=== PATIENT | female | born 1995 | race Caucasian/White ===

== ENCOUNTER 2018-01-01 23:15 | Emergency (ER) | payer MEDICAID ==
[~2018-01-01] VITALS: Ht 177.8 cm; Wt 128.9 kg
[~2018-01-01 23:15] MED LIST: CLIN300C8 PO; FAMO20TA7 PO; FLUO20CA19 PO; LORA1TAB PO; METH500T97 PO; METO25TA35 PO; OXYC-302 PO; OXYM30SP NAS; RANI150C PO; SUCR1TAB PO
[2018-01-01 23:17] VITALS: BP 161/90
== END 2018-01-01 23:41 | disposition home or self-care (01) ==
LOC: ED 23:35
DX: M26.622 Arthralgia of left temporomandibular joint (principal); R68.84 Jaw pain; I10 Essential (primary) hypertension
CPT/HCPCS: 99283

== ENCOUNTER 2018-09-08 22:30 | Emergency (ER) | payer MEDICAID ==
[~2018-09-08] VITALS: Ht 177.8 cm; Wt 128.7 kg
[2018-09-08 23:25] LABS: HCG UR SG 1.018 (1.003-1.030)
[2018-09-09 00:25] VITALS: BP 135/63
[2018-09-09 00:35] LABS: CULTURE INDICATED? YES; MICROSCOPIC INDICATED
== END 2018-09-09 01:13 | disposition home or self-care (01) ==
LOC: ED 23:00
DX: N30.00 Acute cystitis without hematuria (principal); I10 Essential (primary) hypertension; R05 Cough
CPT/HCPCS: 71045; 81001; 81025; 87077; 87086; 87186; 99284

== ENCOUNTER 2020-07-22 17:52 | Emergency (ER) | payer MEDICAID, OTHER ==
[~2020-07-22] VITALS: Ht 175.3 cm; Wt 126.8 kg
[~2020-07-22 17:52] MED LIST changes: -OXYM30SP NAS; +OXYM30SP27 NAS
[2020-07-22] MEDS ORDERED: MORPHINE SULFATE 4 MG/ML, 1ML ONE ×2 (18:20→20:01)
[2020-07-22] MEDS ORDERED: SODIUM CHLORIDE FLUSH 10ML SYR IVF ONE (18:30)
[2020-07-22] MEDS: MORPHINE SULFATE 4 MG/ML, 1ML IVPush PRN ×2 (18:35→20:04)
[2020-07-22 18:48] LABS: BASOPHILS % (AUTO) 2 % (0-1); EOSINOPHILS % (AUTO) 5 % (1-7); LYMPHOCYTES % (AUTO) 31 % (22-44); MEAN CORPUSCULAR HEMOGLOBIN 30.1 pg (27.0-34.8); MONOCYTES % (AUTO) 6 % (2-9); NEUTROPHILS % (AUTO) 56 % (42-75); PLATELET COUNT 275 x10^3/uL (130-400); RED BLOOD COUNT 4.53 x10^6/uL (3.82-5.3); RED CELL DISTRIBUTION WIDTH 12.9 % (9.6-15.2)
--- NOTE | 2020-07-22 18:52 | NUR ---
REPORT GIVEN TO PILI HARDWICK
[2020-07-22 18:57] LABS: MD NO
[2020-07-22 18:59] LABS: ALBUMIN 3.8 g/dL (3.4-5.0); ANION GAP 5 mmol/L (5-15); CALCIUM 8.6 mg/dL (8.5-10.1); CHLORIDE 108 mmol/L (98-107); CREATININE 0.76 mg/dL (0.55-1.02)
--- NOTE | 2020-07-22 19:00 | NUR ---
Report received from MULU Leigh. This RN to assume care.
[2020-07-22 20:04] VITALS: BP 130/73
--- NOTE | 2020-07-22 20:04 | NUR ---
Patient returned from [place]. Medicated patient per dec.
[2020-07-22 21:33] LABS: MICROSCOPIC INDICATED
--- NOTE | 2020-07-22 22:25 | NUR ---
Discharge instructions given. All questions and concerns addressed. Patient ambulatory with a steady gait. Belongings with patient.
== END 2020-07-22 22:27 | disposition home or self-care (01) ==
LOC: ED 18:49
DX: R10.2 Pelvic and perineal pain (principal); F17.210 Nicotine dependence, cigarettes, uncomplicated; I10 Essential (primary) hypertension; Z90.89 Acquired absence of other organs; Z87.11 Personal history of peptic ulcer disease
CPT/HCPCS: 36415; 76830; 80048; 81001; 82040; 84703; 85025; 96374; 96376; 99284; 99406; J2270; 99285

== ENCOUNTER 2020-08-10 21:38 | Emergency (ER) | payer OTHER ==
[~2020-08-10] VITALS: Ht 175.3 cm; Wt 125.7 kg
--- NOTE | 2020-08-10 21:56 | NUR ---
FABRIC FINISHER: EKG IN TRIAGE.
--- NOTE | 2020-08-10 22:19 | NUR ---
THIS PT STATES SHE FEELS LIKE SHE'S DROWNING WHEN SHE LAYS DOWN. SITTING IN GURNEY IN POSITION OF COMFORT. PT STATES SHE DID NOT HAVE A DIRECT EXPOSURE TO COVID BUT THAT "ONE OF MY EMPLOYEES HAD AN EXPOSURE AND THEN WAS IN MY OFFICE." PT HAS CALL LIGHT IN REACH.
[2020-08-10] MEDS ORDERED: ALBUTEROL/IPRATROPIUM 2.5MG/0.5MG, 3 ML ONE (22:48)
[2020-08-10] MEDS ORDERED: ALBUTEROL/IPRATROPIUM 2.5MG/0.5MG, 3 ML NPPB ONE (23:00)
[2020-08-10] MEDS ORDERED: IBUPROFEN 600 MG TABLET ONE (23:10)
[2020-08-10] MEDS ORDERED: IBUPROFEN 600 MG TABLET PO ONE (23:30)
[2020-08-11 00:27] VITALS: BP 107/64
--- NOTE | 2020-08-11 00:38 | NUR ---
pt states "i feel so much better" upon d/c.
== END 2020-08-11 00:39 | disposition home or self-care (01) ==
LOC: ED 22:48
DX: B34.9 Viral infection, unspecified (principal); I10 Essential (primary) hypertension; Z20.828 Contact with and (suspected) exposure to other viral communicable diseases; Z87.891 Personal history of nicotine dependence
CPT/HCPCS: 36415; 71045; 87635; 93005; 94640; 99285

== ENCOUNTER 2020-12-09 21:08 | Emergency (ER) | payer MEDICAID, OTHER ==
[~2020-12-09] VITALS: Ht 177.8 cm; Wt 120.9 kg
[~2020-12-09 21:08] MED LIST changes: -CLIN300C8 PO; +CLIN300C9 PO; -OXYC-302 PO; +OXYC1TAB14 PO
[2020-12-09] MEDS ORDERED: ACETAMINOPHEN 500 MG TABLET ONE (21:28)
[2020-12-09] MEDS ORDERED: ONDANSETRON ODT 4 MG ONE (21:28)
[2020-12-09] MEDS ORDERED: ONDANSETRON ODT 4 MG PO ONE (21:30)
[2020-12-09] MEDS ORDERED: ACETAMINOPHEN 500 MG TABLET PO ONE (21:30)
[2020-12-09 21:47] LABS: BASOPHILS % (AUTO) 1 % (0-1); EOSINOPHILS % (AUTO) 3 % (1-7); LYMPHOCYTES % (AUTO) 29 % (22-44); MEAN CORPUSCULAR HEMOGLOBIN 30.6 pg (27.0-34.8); MEAN CORPUSCULAR HGB CONC 33.8 g/dL (32.4-35.8); MEAN PLATELET VOLUME 7.1 fL (7.4-10.4); MONOCYTES % (AUTO) 5 % (2-9); NEUTROPHILS % (AUTO) 61 % (42-75); PLATELET COUNT 281 x10^3/uL (130-400); RED BLOOD COUNT 4.39 x10^6/uL (3.82-5.3)
[2020-12-09 21:48] LABS: MD NO
[2020-12-09 21:54] LABS: ALBUMIN 3.7 g/dL (3.4-5.0); ANION GAP 7 mmol/L (5-15); CALCIUM 8.4 mg/dL (8.5-10.1); CHLORIDE 111 mmol/L (98-107); CREATININE 0.89 mg/dL (0.55-1.02)
--- NOTE | 2020-12-09 22:02 | NUR ---
PT UP TO RESTROOM FOR URINE SAMPLE AT THIS TIME.
[2020-12-09 22:47] LABS: MICROSCOPIC INDICATED
[2020-12-09 23:42] VITALS: BP 128/74
--- NOTE | 2020-12-09 23:43 | NUR ---
Patient/Caregiver given discharge instructions and they have confirmed that they understand the instructions. Patient ambulatory with steady gait.
== END 2020-12-09 23:44 | disposition home or self-care (01) ==
LOC: ED 21:51
DX: N93.8 Other specified abnormal uterine and vaginal bleeding (principal); I10 Essential (primary) hypertension; Z90.89 Acquired absence of other organs; Z87.11 Personal history of peptic ulcer disease
CPT/HCPCS: 36415; 80048; 81001; 82040; 84703; 85025; 87086; 99283; Q0162

== ENCOUNTER 2021-05-06 14:45 | Emergency (ER) | payer SELFPAY ==
[~2021-05-06] VITALS: Ht 177.8 cm; Wt 120.0 kg
--- NOTE | 2021-05-06 15:37 | NUR ---
PT PROVIDED URINE SAMPLE. UA COLLECTED AND SENT TO LAB.
[2021-05-06] MEDS ORDERED: METOCLOPRAMIDE 5 MG/ML, 2ML ONE (15:51)
[2021-05-06] MEDS ORDERED: SODIUM CHLORIDE FLUSH 10ML SYR IVF ONE (16:00)
[2021-05-06] MEDS ORDERED: SODIUM CHLORIDE 0.9% 1,000ML IVBOLUS ONE (16:00)
[2021-05-06] MEDS ORDERED: METOCLOPRAMIDE 5 MG/ML, 2ML IVPush ONE (16:00)
[2021-05-06 16:06] LABS: MICROSCOPIC INDICATED
[2021-05-06 16:07] LABS: BASOPHILS % (AUTO) 0 % (0-1); EOSINOPHILS % (AUTO) 2 % (1-7); LYMPHOCYTES % (AUTO) 22 % (22-44); MEAN CORPUSCULAR HEMOGLOBIN 30.6 pg (27.0-34.8); MEAN PLATELET VOLUME 7.5 fL (7.4-10.4); MONOCYTES % (AUTO) 6 % (2-9); NEUTROPHILS % (AUTO) 70 % (42-75); PLATELET COUNT 278 x10^3/uL (130-400); RED BLOOD COUNT 4.77 x10^6/uL (3.82-5.3); RED CELL DISTRIBUTION WIDTH 13.6 % (9.6-15.2)
[2021-05-06 16:16] LABS: ALBUMIN 3.9 g/dL (3.4-5.0); ANION GAP 6 mmol/L (5-15); CHLORIDE 107 mmol/L (98-107); CREATININE 0.85 mg/dL (0.55-1.02)
--- NOTE | 2021-05-06 16:39 | NUR ---
ERMD AT BEDSIDE TO UPDATE PT ON POC.
[2021-05-06 17:12] VITALS: BP 112/66
--- NOTE | 2021-05-06 17:13 | NUR ---
PT REC'VD DISCHARGE INSTRUCTIONS AND EDUCATION. PT HAD NO FURTHER QUESTIONS.
--- NOTE | 2021-05-06 17:20 | NUR ---
PT IN WHEELCHAIR TO DC AREA WITH MOM
== END 2021-05-06 17:26 | disposition home or self-care (01) ==
LOC: ED 15:21
DX: O26.891 Other specified pregnancy related conditions, first trimester (principal); R82.71 Bacteriuria; R10.30 Lower abdominal pain, unspecified; I10 Essential (primary) hypertension; Z87.11 Personal history of peptic ulcer disease; Z90.49 Acquired absence of other specified parts of digestive tract; Z88.1 Allergy status to other antibiotic agents; Z88.0 Allergy status to penicillin; Z3A.01 Less than 8 weeks gestation of pregnancy
CPT/HCPCS: 36415; 76830; 80048; 81001; 82040; 84702; 85025; 87086; 96361; 96374; 99284; J2765; J7030

== ENCOUNTER 2021-06-23 11:32 | Emergency (ER) | payer MEDICAID, OTHER ==
[~2021-06-23] VITALS: Ht 177.8 cm; Wt 127.0 kg
[~2021-06-23 11:32] MED LIST changes: +OXYC1TAB12 PO; -OXYC1TAB14 PO
[2021-06-23 11:51] VITALS: BP 124/78
--- NOTE | 2021-06-23 12:35 | NUR ---
NA X 2 PER ULTRASOUND
--- NOTE | 2021-06-23 15:02 | NUR ---
[email or web address] from [email or web address]
== END 2021-06-23 15:38 | disposition left against medical advice (07) ==
LOC: ED 15:30
DX: O20.0 Threatened abortion (principal); Z3A.13 13 weeks gestation of pregnancy
CPT/HCPCS: 99284